=== PATIENT | male | born 1970 | race Caucasian/White ===

== ENCOUNTER 2025-05-27 15:14 | Outpatient (AMB) | payer BC, SELFPAY ==
--- NOTE | 2025-05-27 15:21 | A.PHYSOV_ITS ---
Vital Signs 05/27/25 15:23 Height 5 ft 5 in Weight 175 lb BMI 29.1 Intake Visit Reasons: Follow up after injection 04/03/25 Intake Note: Patient is a 54 year old Male here for follow up after 04/03/25 L5-S1 JOVAN. 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 The patient received a L5-S1 injection on April 03, which was not as effective as previous ones, providing about 50% pain reduction initially, but the benefit has since decreased. The pain is intermittent, located in the right buttock, and radiates down to the beginning of the hamstring but not below. The patient takes gabapentin a couple of times a day, which helps slightly. The patient also sees a chiropractor for dry needling with electrical stimulation. Previous right L5 injections in December provided approximately 90% pain reduction when the pain was bilateral. A prior CT scan showed advanced degenerative disc disease with a posterior osteophyte mildly displacing the right L5 nerve root. The patient has no history of low back surgery, no metal in the body, and is not claustrophobic. The patient's job is active and involves running around and bending. Patient has failed conservative treatment. He is requesting MRI of his lumbar spine for further evaluation as CT scan show the disc and nerve roots as good. He has a pain level today of 7/10. Pain Description - Location: Right buttock. - Radiation: Down the right side to the beginning of the hamstring, without extending further down the leg. - Onset and Timing: Intermittent, with some days being pain-free and others being painful. - Severity: The recent injection on April 03 provided about 50% improvement, but the pain has since returned to a level worse than that. - Exacerbating Factors: Pain is sometimes triggered by activity at work, which involves running around and bending. - Relieving Factors: Gabapentin provides minor relief. Procedure: Right L5 TFESI 01/09/2024 100% reduction of his pain Right L5 TFESI 05/23/2024 90% reduction of his pain L5-S1 JOVAN 90% reduction of his pain 11/22/2024 symptoms returned shortly thereafter [facility] Surgical History (Updated 05/27/25 @ 15:28 by Lachelle Jay MA) H/O: knee surgery (Unknown) H/O hernia repair History of carpal tunnel surgery (Unknown) H/O shoulder surgery Social History (Updated 05/27/25 @ 15:29 by Lachelle Jay MA) Alcohol intake: current Alcohol intake frequency: does not drink Patient Tobacco Use Status: Never used Tobacco Use of substances other than those prescribed or required for medical reasons: No Review of Systems Narrative Review of Systems - Constitutional: Reports feeling a little under the weather. - Musculoskeletal: Reports intermittent pain in the right buttock. - Neurological: Reports pain radiating from the right buttock down to the proximal hamstring. Physical Exam Exam Exam: Physical Exam Lumbar Spine: Examination of his lumbar spine, there is no visible swelling or deformity. He is tender to the right lower lumbar facets. He is otherwise nontender. Full range of motion was lumbar spine. He does have an increase in pain with facet loading. Special Tests: Lhermittes sign was negative Heel Toe walk is normal Left straight leg raise: Negative Right straight leg raise: Positive right Special tests Chemo test is negative Ganslen's test is negative SI Joint compression test negative Eleln test negative Piriformis stretch is negative Lower Extremities: Neuro: Sensation: Intact to lower extremities bilaterally Strength L2 (Psoas): 5/5 on the left and 5/5 on the right. L3 (Quads): 5/5 on the left and 5/5 on the right. L4 (Ant tibialis): 5/5 on the left and 5/5 on the right. L5 (EHL) 5/5 on the left and 5/5 on the right. S1 (Gastroc): 5/5 on the left and 5/5 on the right. DTR L4: (Patellar) Left 2 Right 2 S1: (Achilles) Left 2 Right 2 Babinski Downgoing No pathologic clonus. No involuntary movement. Vital Signs: BMI result Body Mass Index 29.1 Assessment & Plan Assessment & Plan (1) Lumbar radiculopathy: Code(s): M54.16 - Radiculopathy, lumbar region Category: Medical (2) Lumbar spondylosis: Code(s): M47.816 - Spondylosis without myelopathy or radiculopathy, lumbar region Category: Medical Plan Pain Management - Analgesia: The patient is taking gabapentin a couple of times per day, which provides a little help with the pain. - A recent injection on April 03 provided about 50% initial pain relief, but this has since diminished. - Activities of Daily Living: The patient is able to run around at work but sometimes the pain catches them. - Pain can sometimes make it difficult to walk in the morning. Plan Patient was informed and verbally consented to the use of an ambient scribe for clinic note documentation during this visit. 1. Lumbosacral Radiculopathy, Right Side The patient's chief complaint is right-sided buttock pain that radiates to the hamstring, which is consistent with the finding of a right L5 nerve root displacement by a posterior osteophyte on a prior CT scan. A recent injection on April 03 provided only about 50% relief, which has since diminished. The pat ient expressed a preference to better understand the underlying pathology before pursuing another injection. An MRI of the lumbar spine will be ordered to provide more detailed imaging of the discs and nerves. Patient has failed conservative treatment. The patient will follow up after the MRI to review the results and discuss further treatment options. In the interim, the patient will continue taking gabapentin as needed for pain. ntment. - Please schedule a follow-up appointment with our office after you have completed the MRI to review the results. Orders: Orders MR lumbar spine wo con Today M51.16 - Intervertebral disc disorders with radiculopathy, lumbar region Coding Level of Care Code Tele Est Pt Level 3 (37486) Diagnoses Lumbar radiculopathy M54.16 Lumbar spondylosis M47.816
[2025-05-27 15:23] VITALS: BMI 29.1
--- OUTSIDE RECORDS SUMMARY | 2025-05-27 17:42 | XMS_ITS | Data Portability ---
Author Organization [facility] ([place], [place]), Main Office Address [address] [facility] [address] [place] [id number] Care Team Providers Care Marketing Information Coordinator Name Role Phone RYLAN HERNANDEZRI Cad Designer KEO MARKS Orthopedic Surgeon [facility] Urologist RUTH MAURICIO Primary Care Provider PATRICK DEL CID Phys. Med. & Rehab Assessment Encounter Date Assessment Date Assessment LastModified by Organization Details LastModified Time 12/17/2023 12/17/2023 This service was provided using telemedicine. Patient consented to video & audio visit Patient was located in the [facility]. Provider was located in the office. No other persons participated in the telemedicine visit except for the patient unless otherwise indicated here. Total time of visit was 26 minutes. Not available 12/17/2023 13:20:45 Plan of Treatment Reminders Order Date Submit Date Provider Last Modified By Organization Details Last Modified Time Details Appointments PE EST 2025 01:30P Tarik Mauricio PA-C Not available Not available Not available Lab lipid panel, serum 2023 024 LIZZIE [facility] (Centralized Electronic Ordering - All Locations), Patient Can Go To The Location Of Their Choice, [id number] 05/30/2024 14:27:05 CMP, serum or plasma 2023 024 [email or web address] [facility] (Centralized Electronic Ordering - All Locations), Patient Can Go To The Location Of Their Choice, 12/26/2024 09:21:09 lipid panel, serum 2023 024 LIZZIE [facility] (Centralized Electronic Ordering - All Locations), Patient Can Go To The Location Of Their Choice, 07/15/2024 06:07:36 CMP, serum or plasma 2023 024 LIZZIE [facility] (Centralized Electronic Ordering - All Locations), Patient Can Go To The Location Of Their Choice, 07/15/2024 06:07:36 CBC w/ auto diff 2023 024 LIZZIE [facility] (Centralized Electronic Ordering - All Locations), Patient Can Go To The Location Of Their Choice, 07/15/2024 06:07:35 PSA, total, serum or plasma 2023 024 LIZZIE [facility] (Centralized Electronic Ordering - All Locations), Patient Can Go To The Location Of Their Choice, 07/15/2024 06:07:37 CMP, serum or plasma 2023 024 [email or web address] [facility] (Centralized Electronic Ordering - All Locations), Patient Can Go To The Location Of Their Choice, 11/17/2024 09:13:14 lipid panel, serum 2023 024 LIZZIE [facility] (Centralized Electronic Ordering - All Locations), Patient Can Go To The Location Of Their Choice, 11/15/2024 04:00:41 Referral None record ed. Procedures suture remova l (PROC) 2023 024 [place] In-Office Order, Internal Use Only DO Not Attach Compendium DO Not Attach Compendium, Do Not Delete/merge, [id number] 03/11/2024 13:22:29 Surgeries None record ed. Imaging None record ed. Medication Orders Spiriv a Respim at 1.25 mcg/ac tuatio n soluti on for inhala tion 2024 025 [place] [id number], [address] [place], [address], 11/05/2024 16:00:17 Patient TargetsNo targets recorded. Patient Instructions Encounter Date Encounter Id Patient Instructions Last Modified By Organization Details Last Modified Time 12/26/2023 [id number] high blood pressure: care instructions Not available 12/26/2023 16:05:04 learning about high blood pressure Not available 12/26/2023 16:05:03 high cholesterol : care instructions Not available 12/26/2023 16:05:04 Medications (OTC , herbal therapies, supplements) reviewed and reconciled with patient and or caregiver, including potential side effects, drug interactions, instructions, and the consequences of not taking medication. Reviewed potential barriers to medication adherence, such as side effects from medication or cost of medication. gillian Not available 12/26/2023 15:51:55 03/11/2024 [id number] At [facility] follow up visit, all current and discharge medications (OTC, herbal therapies, supplements) reviewed and reconciled with patient and or caregiver, including potential side effects, drug interactions, instructions, and the consequences of not taking medication. Reviewed potential barriers to medication adherence, such as side effects from medication or cost of medication. [email or web address] Not available 03/11/2024 11:27:37 05/30/2024 [id number] high cholesterol : care instructions Not available 05/30/2024 14:26:50 attention defici t hyperactivity disorder (ADHD) in adults: care instructions Not available 05/30/2024 14:26:50 sleep apnea: car e instructions Not available 05/30/2024 14:26:50 When You Want to Lose Weight: Care Instructions Not available 05/30/2024 14:26:50 high blood pressure: care instructions Not available 05/30/2024 14:26:50 learning about high blood pressure Not available 05/30/2024 14:26:50 benign prostatic hyperplasia: care instructions Not available 05/30/2024 14:26:50 11/05/2024 [id number] high blood pressure: care instructions Not available 11/05/2024 16:00:09 learning about high blood pressure Not available 11/05/2024 16:00:09 dash diet: care instructions Not available 11/05/2024 16:05:17 Reason for Referral None Reported. Results Created Date Observation Date Name Description Value Unit Range Abnormal Flag Note LastModifiedBy Organization Detail LastModifiedTime 03/11/2003/11/2024 ninfa nava (PROC ) done by [facility] yvette Not Available In-Office Order Internal Use Only DO Not Attach Compendium DO Not Attach Compendium, Do Not Delete/merge, [id number] 03/11/2024 12:11:40 07/14/1907/14/2024 CBC WITH DIFFE RENTI AL/PL ATELE T WBC 13.2 x10e3 /uL 3.4-10 .8 above high normal Not Available [facility] ([facility]) [address] [place], [address], 07/15/2024 06:07:35 07/14/19 25 07/14/2024 CBC WITH DIFFE RENTI AL/PL ATELE T RBC 4.86 x10e6 /uL 4.14-5 .80 normal Not Available [facility] ([facility]) [address] [place], [address], 07/15/2024 06:07:35 07/14/19 25 07/14/2024 CBC WITH DIFFE RENTI AL/PL ATELE T hemoglobin 14.4 g/dL 13.0-1 7.7 normal Not Available [facility] ([facility]) [address] [place], [address], 07/15/2024 06:07:35 07/14/19 25 07/14/2024 CBC WITH DIFFE RENTI AL/PL ATELE T hematocrit 43.9 % 37.5-5 1.0 normal Not Available [facility] ([facility]) [address] [place], [address], 07/15/2024 06:07:35 07/14/19 25 07/14/2024 CBC WITH DIFFE RENTI AL/PL ATELE T MCV 90 fL 79-97 normal Not Available [facility] ([facility]) [address] [facility], [place], [address], 07/15/2024 06:07:35 07/14/19 25 07/14/2024 CBC WITH DIFFE RENTI AL/PL ATELE T MCH 29.6 pg 26.6-3 3.0 normal Not Available [facility] ([facility]) [address] [place], [address], 07/15/2024 06:07:35 07/14/19 25 07/14/2024 CBC WITH DIFFE RENTI AL/PL ATELE T MCHC 32.8 g/dL 31.5-3 5.7 normal Not Available [facility] ([facility]) [address] [place], [address], 07/15/2024 06:07:35 07/14/19 25 07/14/2024 CBC WITH DIFFE RENTI AL/PL ATELE T RDW 13.1 % 11.6-1 5.4 Not Available [facility] ([facility]) [address] [place], [address], 07/15/2024 06:07:35 07/14/19 25 07/14/2024 CBC WITH DIFFE RENTI AL/PL ATELE T platelets 180 x10e3 /uL 150-45 0 normal Not Available [facility] ([facility]) [address] [place], [address], 07/15/2024 06:07:35 07/14/1907/14/2024 CBC WITH DIFFE RENTI AL/PL ATELE T neutrophils 75 % not estab. normal Not Available [facility] ([facility]) [address] [place], [address], 07/15/2024 06:07:35 07/14/19 25 07/14/2024 CBC WITH DIFFE RENTI AL/PL ATELE T lymphs 15 % not estab. normal Not Available [facility] ([facility]) [address] [facility] [place], [address], 07/15/2024 06:07:35 07/14/19 25 07/14/2024 CBC WITH DIFFE RENTI AL/PL ATELE T monocytes 9 % not estab. normal Not Available [facility] ([facility]) [address] [facility], [place], [address], 07/15/2024 06:07:35 07/14/19 25 07/14/2024 CBC WITH DIFFE RENTI AL/PL ATELE T eos 0 % not estab. normal Not Available [facility] ([facility]) [address] [place], [address], 07/15/2024 06:07:35 07/14/19 25 07/14/2024 CBC WITH DIFFE RENTI AL/PL ATELE T basos 0 % not estab. normal Not Available [facility] ([facility]) [address] [place], [address], 07/15/2024 06:07:35 07/14/19 25 07/14/2024 CBC WITH DIFFE RENTI AL/PL ATELE T immature cells STAFF GENETIC COUNSELOR Not Available [facility] ([facility]) [address] [place], [address], 07/15/2024 06:07:35 07/14/19 25 07/14/2024 CBC WITH DIFFE RENTI AL/PL ATELE T neutrophils (absolute) 9.8 x10e3 /uL 1.4-7. 0 above high normal Not Available [facility] ([facility]) [address] [place], [address], 07/15/2024 06:07:35 07/14/19 25 07/14/2024 CBC WITH DIFFE RENTI AL/PL ATELE T lymphs (absolute) 2.0 x10e3 /uL 0.7-3. 1 normal Not Available [facility] ([facility]) [address] [place], [address], 07/15/2024 06:07:35 07/14/19 25 07/14/2024 CBC WITH DIFFE RENTI AL/PL ATELE T monocytes(ab solute) 1.2 x10e3 /uL 0.1-0. 9 above high normal Not Available [facility] ([facility]) [address] [facility] [place], [address], 07/15/2024 06:07:35 07/14/19 25 07/14/2024 CBC WITH DIFFE RENTI AL/PL ATELE T eos (absolute) 0.0 x10e3 /uL 0.0-0. 4 normal Not Available [facility] ([facility]) [address] [place], [address], 07/15/2024 06:07:35 07/14/19 25 07/14/2024 CBC WITH DIFFE RENTI AL/PL ATELE T baso (absolute) 0.0 x10e3 /uL 0.0-0. 2 normal Not Available [facility] ([facility]) [address] [place], [address], 07/15/2024 06:07:35 07/14/19 25 07/14/2024 CBC WITH DIFFE RENTI AL/PL ATELE T immature granulocytes 1 % not estab. Not Available [facility] ([facility]) [address] [place], [address], 07/15/2024 06:07:35 07/14/19 25 07/14/2024 CBC WITH DIFFE RENTI AL/PL ATELE T immature grans (abs) 0.2 x10e3 /uL 0.0-0. 1 above high normal (An eleva brigida perce ntage of Immat ure Granu locyt es has not been found to be clini dean signi fican t as a sole clini domonique predi ctor of disea se. Does NOT inclu de bands or blast cells . Pregn ger assoc iated physi ologi domonique leuko cytos is may also show incre ased immat ure granu locyt es witho ut clini domonique signi ric ce.) Not Available [facility] ([facility]) [address], [place], [address], 07/15/2024 06:07:35 07/14/19 25 07/14/2024 CBC WITH DIFFE RENTI AL/PL ATELE T NRBC STAFF GENETIC COUNSELOR Not Available [facility] ([facility]) [address], [place], [address], 07/15/2024 06:07:35 07/14/19 25 07/14/2024 CBC WITH DIFFE RENTI AL/PL ATELE T hematology comments: STAFF GENETIC COUNSELOR Not Available [facility] ([facility]) [address], [place], [address], 07/15/2024 06:07:35 07/14/19 25 07/14/2024 COMP. METAB OLIC PANEL (14) glucose 87 mg/dL 70-99 normal Not Available [facility] ([facility]) [address], [place], [address], 07/15/2024 06:07:36 07/14/19 25 07/14/2024 COMP. METAB OLIC PANEL (14) BUN 21 mg/dL 6-24 normal Not Available [facility] ([facility]) [address] [place], [address], 07/15/2024 06:07:36 07/14/19 25 07/14/2024 COMP. METAB OLIC PANEL (14) creatinine 0.94 mg/dL 0.76-1 .27 normal Not Available [facility] ([facility]) [address] [place], [address], 07/15/2024 06:07:36 07/14/19 25 07/14/2024 COMP. METAB OLIC PANEL (14) eGFR 98 mL/mi n/1.7 3 >59 normal Not Available [facility] ([facility]) [address] [place], [address], 07/15/2024 06:07:36 07/14/19 25 07/14/2024 COMP. METAB OLIC PANEL (14) BUN/creatini ne ratio 22 9-20 above high normal Not Available [facility] ([facility]) [address] [place], [address], 07/15/2024 06:07:36 07/14/19 25 07/14/2024 COMP. METAB OLIC PANEL (14) sodium 139 mmol/ L 134-14 4 normal Not Available [facility] ([facility]) [address] [place], [address], 07/15/2024 06:07:36 07/14/19 25 07/14/2024 COMP. METAB OLIC PANEL (14) potassium 4.2 mmol/ L 3.5-5. 2 normal Not Available [facility] ([facility]) [address] [facility] [place], [address], 07/15/2024 06:07:36 07/14/19 25 07/14/2024 COMP. METAB OLIC PANEL (14) chloride 104 mmol/ L 96-106 normal Not Available [facility] ([facility]) [address] [facility] [place], [address], 07/15/2024 06:07:36 07/14/19 25 07/14/2024 COMP. METAB OLIC PANEL (14) carbon dioxide, total 22 mmol/ L 20-29 normal Not Available [facility] ([facility]) [address] [facility] [place], [address], 07/15/2024 06:07:36 07/14/19 25 07/14/2024 COMP. METAB OLIC PANEL (14) calcium 9.5 mg/dL 8.7-10 .2 normal Not Available [facility] ([facility]) [address] [facility] [place], [address], 07/15/2024 06:07:36 07/14/19 25 07/14/2024 COMP. METAB OLIC PANEL (14) protein, total 6.1 g/dL 6.0-8. 5 normal Not Available [facility] ([facility]) [address] [place], [address], 07/15/2024 06:07:36 07/14/19 25 07/14/2024 COMP. METAB OLIC PANEL (14) albumin 4.1 g/dL 3.8-4. 9 normal Not Available [facility] ([facility]) [address] [place], [address], 07/15/2024 06:07:36 07/14/19 25 07/14/2024 COMP. METAB OLIC PANEL (14) globulin, total 2.0 g/dL 1.5-4. 5 Not Available [facility] ([facility]) [address] [place], [address], 07/15/2024 06:07:36 07/14/19 25 07/14/2024 COMP. METAB OLIC PANEL (14) bilirubin, total 0.6 mg/dL 0.0-1. 2 normal Not Available [facility] ([facility]) [address] [facility] [place], [address], 07/15/2024 06:07:36 07/14/19 25 07/14/2024 COMP. METAB OLIC PANEL (14) alkaline phosphatase 74 IU/L 44-121 normal Not Available [facility] ([facility]) [address] [place], [address], 07/15/2024 06:07:36 07/14/19 25 07/14/2024 COMP. METAB OLIC PANEL (14) AST (SGOT) 29 IU/L 0-40 normal Not Available [facility] ([facility]) [address] [facility] [place], [address], 07/15/2024 06:07:36 07/14/19 25 07/14/2024 COMP. METAB OLIC PANEL (14) ALT (SGPT) 38 IU/L 0-44 normal Not Available [facility] ([facility]) [address] [facility] [place], [address], 07/15/2024 06:07:36 07/14/19 25 07/14/2024 LIPID PANEL cholesterol, total 149 mg/dL 100-19 9 normal Not Available [facility] ([facility] [address] [place], [address], 07/15/2024 06:07:36 07/14/19 25 07/14/2024 LIPID PANEL triglyceride s 40 mg/dL 0-149 normal Not Available [facility] ([facility]) [address] [place], [address], 07/15/2024 06:07:36 07/14/19 25 07/14/2024 LIPID PANEL HDL cholesterol 64 mg/dL >39 normal Not Available [facility] ([facility] [address] [place], [address], 07/15/2024 06:07:36 07/14/19 25 07/14/2024 LIPID PANEL VLDL cholesterol domonique 9 mg/dL 5-40 Not Available [facility] ([facility]) [address] [facility] [place], [address], 07/15/2024 06:07:36 07/14/19 25 07/14/2024 LIPID PANEL LDL chol calc ([email or web address] 76 mg/dL 0-99 Not Available [facility] [address] [place], [address], 07/15/2024 06:07:36 07/14/19 25 07/14/2024 LIPID PANEL LDL calc comment: STAFF GENETIC COUNSELOR Not Available [facility] ([facility]) [address] [place], [address], 07/15/2024 06:07:36 07/14/19 25 07/15/2024 PROST ATE-S PECIF IC AG prostate specific Ag 0.4 NG/mL 0.0-4. 0 normal Mirian ECLIA metho dolog y. Accor ding to the Ameri can Urolo gical Assoc iatio n, Serum PSA shoul d decre ase and remai n at undet ectab le level s after radic al prost atect nat[place]. The AUA defin es bioch emica l recur rence as an initi al PSA value 0.2 ng/mL or great er follo wed by a subse quent confi rmato ry PSA value 0.2 ng/mL or great er. Value s obtai edith with diffe rent assay metho ds or kits canno t be used inter dimas eably . Resul ts canno t be inter prete d as absol [place] evide nce of the prese nce or absen ce of cat valle se. Not Available [facility] ([facility]) [address] [facility], [place], [address], 07/15/2024 06:07:37 Result Notes None recorded. Problems Name Problem SNOMED Code Status Onset Date Resolution Date Notes Provider Name and Address Organization Details Recorded Time Knee pain Completed 09/29/2016 Patrick Rich MD [address] [address], [place], [address] , [facility] 7 16:45:46 Moderate asthma 000567158 Active on [employer]ol[employer] Ruth Mauricio PA-C [address] [address], [place], [address] , [facility] 2 16:00:25 Sinusiti s 86151961 Completed 09/29/2016 Patrick Rich MD [address] [address], [address] , [facility] 7 16:46:23 Hearing loss 57437469 Completed 09/29/2016 Patrick Rich MD [address] [address], [place], [address] , [facility] 7 16:46:40 Epistaxi s Active Patrick Rich MD [address] [facility] [address], [place], [address] , [facility] 6 20:48:35 Attentio n deficit hyperact ivity disorder , predomin antly inattent pearl type 83995522 Active Patrick Rich MD [address] [facility] [address], [place], [address] , [facility] 6 11:12:15 Lacerati on of lower limb 211778217 Completed 09/29/2016 Patrick Rich MD [address] [facility] [address], [place], [address] , [facility] 7 16:46:33 Essentia l hyperten silvestre 17559742 Active Juli herrera MA [facility], [facility] ([place], [place]) 0 14:53:37 Lesion of ulnar nerve 723616592 Completed 200809/29/2016 Patrick Rich MD [address] [facility] [address], [place], [address] , [facility] 7 16:46:20 Influenz a vaccine needed 35221563418 06 Completed 200801/13/2014 RECORDED 08/21/19 09 9:04AM BY JULI CONNELL MA, ANNOTATI ON/ADDEN DUM Not Available [facility] 4 14:56:47 Administ ration of bacteria l and viral vaccine Completed 200801/13/2014 RECORDED 08/21/19 09 9:04AM BY JULI CONNELL MA, OFFICE VISIT Not Available [facility] 4 14:56:47 Influenz a vaccine needed 20810494842 06 Completed 200802/05/2014 RECORDED 08/21/19 09 9:04AM BY JULI CONNELL MA, ANNOTATI ON/ADDEN DUM Not Available [facility] 4 13:05:52 Administ ration of bacteria l and viral vaccine Completed 200802/05/2014 RECORDED 08/21/19 09 9:04AM BY JULI CONNELL MA, OFFICE VISIT Not Available [facility] 4 13:05:52 Influenz a vaccine needed 57770508975 06 Completed 200802/06/2014 RECORDED 08/21/19 09 9:04AM BY JULI CONNELL MA, ANNOTATI ON/ADDEN DUM Not Available [facility] 4 03:52:35 Administ ration of bacteria l and viral vaccine Completed 200802/06/2014 RECORDED 08/21/19 09 9:04AM BY JULI CONNELL MA, OFFICE VISIT Not Available [facility] 4 03:52:35 Contact dermatit is 82129307 Completed 200901/13/2014 RECORDED 09/28/19 10 2:37PM BY JULI CONNELL MA, ANNOTATI ON/ADDEN DUM Ruth BILLINGS-C [address] [facility] [address], [place], [address] , [facility] 2 10:21:38 Allergic rhinitis 42654790 Completed 200901/13/2014 RECORDED 09/28/19 10 2:37PM BY JULI CONNELL MA ANNOTATI ON/ADDEN DUM Juli herrera MA null, [facility] ([place], [place]) 6 10:30:39 Contact dermatit is 06743342 Completed 200902/05/2014 RECORDED 09/28/19 10 2:37PM BY JULI CONNELL MA, ANNOTATI ON/ADDEN DUM Ruthbrian BILLINGS-C [address] [facility] [address], [place], [address] , [facility] 2 10:21:38 Allergic rhinitis 74397509 Completed 200902/05/2014 RECORDED 09/28/19 10 2:37PM BY JULI CONNELL MA, ANNOTATI ON/ADDEN DUM SUMAN Olson, [facility] ([place], [place]) 6 10:30:39 Contact dermatit is 67403877 Completed 200902/06/2014 RECORDED 09/28/19 10 2:37PM BY JULI CONNELL MA, ANNOTATI ON/ADDEN DUM Ruth Mauricio PA-C [address] [facility] [address], [place], [address] , [facility] 2 10:21:38 Allergic rhinitis 94310276 Completed 200902/06/2014 RECORDED 09/28/19 10 2:37PM BY JULI CONNELL MA, ANNOTATI ON/ADDEN DUM SUMAN Olson, [facility] ([place], [place]) 6 10:30:39 Shoulder joint pain 402762441 Completed 201101/13/2014 RECORDED 08/11/19 12 3:23PM BY PATRICK RICH MD, ANNOTATI ON/ADDEN DUM Not Available [facility] 4 14:56:45 Acute sinusiti s 53617594 Completed 201101/13/2014 RECORDED 08/11/19 12 3:23PM BY PATRICK RICH MD, ANNOTATI ON/ADDEN DUM Not Available [facility] 4 14:56:45 Headache 60635840 Completed 201101/13/2014 RECORDED 08/11/19 12 3:23PM BY PATRICK RICH MD, ANNOTATI ON/ADDEN DUM Not Available [facility] 4 14:56:46 Dizzines s and giddines s 557441625 Completed 201101/13/2014 RECORDED 08/11/19 12 3:23PM BY PATRICK RICH MD, ANNOTATI ON/ADDEN DUM Not Available [facility] 4 14:56:46 Medial epicondy litis 15318364 Completed 201101/13/2014 RECORDED 08/11/19 12 3:23PM BY PATRICK RICH MD, ANNOTATI ON/ADDEN DUM Not Available [facility] 4 14:56:47 Nausea 640499365 Completed 201101/13/2014 RECORDED 08/11/19 12 3:23PM BY PATRICK RICH MD, ANNOTATI ON/ADDEN DUM Not Available [facility] 4 14:56:47 Otalgia 82974935 Completed 201101/13/2014 IMPRESSI ON: MILD X 2 WEEKS, NORMAL EXAM, H/O ALLERGIE S CONTINUE NASONEX AND CLARINEX , REASSURA NCE GIVEN; RECORDED 08/11/19 12 3:23PM BY PATRICK RICH MD, ANNOTATI ON/ADDEN DUM Not Available [facility] 4 14:56:47 Sprain of acromioc lavicula r ligament 37679718 Completed 201101/13/2014 RECORDED 08/11/19 12 3:23PM BY PATRICK RICH MD, ANNOTATI ON/ADDEN DUM Not Available [facility] 4 14:56:48 Conjunct ival hemorrha ge 21920220 Completed 201101/13/2014 RECORDED 08/11/19 12 3:23PM BY PATRICK RICH MD, ANNOTATI ON/ADDEN DUM Not Available [facility] 4 14:56:48 Intestin al infectio us disease 620107789 Completed 201101/13/2014 RECORDED 08/11/19 12 3:23PM BY PATRICK RICH MD, ANNOTATI ON/ADDEN DUM Not Available [facility] 4 14:56:48 Shoulder joint pain 818692416 Completed 201102/05/2014 RECORDED 08/11/19 12 3:23PM BY PATRICK RCIH MD, ANNOTATI ON/ADDEN DUM Not Available [facility] 4 13:05:51 Acute sinusiti s 25992600 Completed 201102/05/2014 RECORDED 08/11/19 12 3:23PM BY PATRICK RICH MD, ANNOTATI ON/ADDEN DUM Not Available [facility] 4 13:05:51 Headache 95270596 Completed 201102/05/2014 RECORDED 08/11/19 12 3:23PM BY PATRICK RICH MD, ANNOTATI ON/ADDEN DUM Not Available [facility] 4 13:05:52 Dizzines s and giddines s 960335308 Completed 201102/05/2014 RECORDED 08/11/19 12 3:23PM BY PATRICK RICH MD, ANNOTATI ON/ADDEN DUM Not Available [facility] 4 13:05:52 Medial epicondy litis 42458604 Completed 201102/05/2014 RECORDED 08/11/19 12 3:23PM BY PATRICK RICH MD, ANNOTATI ON/ADDEN DUM Not Available [facility] 4 13:05:52 Nausea 981937629 Completed 201102/05/2014 RECORDED 08/11/19 12 3:23PM BY PATRICK RICH MD, ANNOTATI ON/ADDEN DUM Not Available [facility] 4 13:05:52 Otalgia 29031689 Completed 201102/05/2014 IMPRESSI ON: MILD X 2 WEEKS, NORMAL EXAM, H/O ALLERGIE S CONTINUE NASONEX AND CLARINEX , REASSURA NCE GIVEN; RECORDED 08/11/19 12 3:23PM BY PATRICK RICH MD, ANNOTATI ON/ADDEN DUM Not Available [facility] 4 13:05:52 Sprain of acromioc lavicula r ligament 96001394 Completed 201102/05/2014 RECORDED 08/11/19 12 3:23PM BY PATRICK RICH MD, ANNOTATI ON/ADDEN DUM Not Available [facility] 4 13:05:53 Conjunct ival hemorrha ge 67274499 Completed 201102/05/2014 RECORDED 08/11/19 12 3:23PM BY PATRICK RICH MD, ANNOTATI ON/ADDEN DUM Not Available [facility] 4 13:05:53 Intestin al infectio us disease 871726024 Completed 201102/05/2014 RECORDED 08/11/19 12 3:23PM BY PATRICK RICH MD, ANNOTATI ON/ADDEN DUM Not Available [facility] 4 13:05:53 Shoulder joint pain [id number] Completed 201102/06/2014 RECORDED 08/11/19 12 3:23PM BY PATRICK RICH MD, ANNOTATI ON/ADDEN DUM Not Available [facility] 4 03:52:34 Acute sinusiti s [id number] Completed 201102/06/2014 RECORDED 08/11/19 12 3:23PM BY PATRICK RICH MD, ANNOTATI ON/ADDEN DUM Not Available [facility] 4 03:52:34 Headache [id number] Completed 201102/06/2014 RECORDED 08/11/19 12 3:23PM BY PATRICK RICH MD, ANNOTATI ON/ADDEN DUM Not Available [facility] 4 03:52:35 Dizzines s and giddines s [id number] Completed 201102/06/2014 RECORDED 08/11/19 12 3:23PM BY PATRICK RICH MD, ANNOTATI ON/ADDEN DUM Not Available [facility] 4 03:52:35 Medial epicondy litis [id number] Completed 201102/06/2014 RECORDED 08/11/19 12 3:23PM BY PATRICK RICH MD, ANNOTATI ON/ADDEN DUM Not Available [facility] 4 03:52:35 Nausea [id number] Completed 201102/06/2014 RECORDED 08/11/19 12 3:23PM BY PATRICK RICH MD, ANNOTATI ON/ADDEN DUM Not Available [facility] 4 03:52:35 Otalgia [id number] Completed 201102/06/2014 IMPRESSI ON: MILD X 2 WEEKS, NORMAL EXAM, H/O ALLERGIE S CONTINUE NASONEX AND CLARINEX , REASSURA NCE GIVEN; RECORDED 08/11/19 12 3:23PM BY PATRICK RICH MD, ANNOTATI ON/ADDEN DUM Not Available [facility] 4 03:52:35 Sprain of acromioc lavicula r ligament [id number] Completed 201102/06/2014 RECORDED 08/11/19 12 3:23PM BY PATRICK RIHC MD, ANNOTATI ON/ADDEN DUM Not Available [facility] 4 03:52:35 Conjunct ival hemorrha ge [id number] Completed 201102/06/2014 RECORDED 08/11/19 12 3:23PM BY PATRICK RICH MD, ANNOTATI ON/ADDEN DUM Not Available [facility] 4 03:52:35 Intestin al infectio us disease [id number] Completed 201102/06/2014 RECORDED 08/11/19 12 3:23PM BY PATRICK RICH MD, ANNOTATI ON/ADDEN DUM Not Available [facility] 4 03:52:35 Lateral epicondy litis [id number] Completed 201101/13/2014 RECORDED 05/25/20 12 10:07AM BY JADE MAYBERRY MA, ANNOTATI ON/ADDEN DUM Not Available [facility] 4 14:56:46 Adult health examinat ion Completed 201101/13/2014 RECORDED 05/25/20 12 10:07AM BY JADE MAYBERRY MA, ANNOTATI ON/ADDEN DUM SUMAN Hernández [place] - [facility] 8 14:22:20 Lateral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 Much Tobacco Do You Chew? None Information not available 09/29/2015 What Type Of Diet Are You Following? REGULAR Information not available 09/24/2014 Which Illicit Or Recreational Drugs Have You Used? None Information not available 09/29/2015 Live Alone Or With Others? With Others (Alondra) And Twins (boy And Girl) Information not available 04/28/2022 Do You Take Precautions To Prevent Distracted Driving? Yes Information not available 09/29/2015 How Often Do You Need To Have Someone Help You When You Read Instructions, Pamphlets, Or Other Written Material From Your Doctor Or Pharmacy? Never Information not available 09/29/2015 Have You Served In The ? No [email or web address] Information not available 09/29/2016 Have You Or Anyone In Your Household Had Any Of The Following Symptoms In The Last 14 Days: Sore Throat, Cough, Chills, Body Aches For Unknown Reasons, Shortness Of Breath For Unknown Reasons, Loss Of Smell, Loss Of Taste, Fever At Or Greater Than 100 Degrees Fahrenheit? No [email or web address] Information not available 05/17/2020 Are You Or Anyone In Your Household A Health Care Provider Or Emergency Responder? Yes [email or web address] Information not available 05/17/2020 To The Best Of Your Knowledge Have You Been In Close Proximity To Any Individual Who Tested Positive For COVID-19? No Information not available 05/17/2020 *AWV ONLY* Are You Presently Prescribed Opioid Medication By PCP Or Specialist? If YES -Provider Assess The Benefit For Other, Non-opioid Pain Therapies Instead, Even If The Patient Does Not Have OUD But Is Possibly At Risk. No Information not available 12/24/2020 Have You Recently Traveled To A COVID-19 High Risk Area Or Gathering In The Last 10 Days? No Information not available 12/24/2020 What Was The Date Of Your Most Recent Tobacco Screening? 05/30/2024 Information not available 05/30/2024 How Many Children Do You Have? 2 Twins (boy And Girl) Information not available 09/29/2015 Do You Use Protection During Sex? No Information not available 09/29/2015 Do You Use Your Seat Belt Or Car Seat Routinely? Yes Information not available 12/27/2021 Seat Belts Used Routinely Yes Information not available 04/28/2022 Are You Sexually Active? Yes Information not available 09/29/2015 Smoke Alarm In Home Yes Information not available 04/28/2022 Do You Have Smoke And Carbon Monoxide Detectors In Your Home? Yes Information not available 12/27/2021 At What Age Did You Start Smoking Tobacco? 0 Information not available 09/29/2015 Are You Passively Exposed To Smoke? No Information not available 09/29/2015 How Much Tobacco Do You Smoke? No Information not available 09/29/2015 Do You Use Sunscreen Routinely? Yes Information not available 12/24/2020 How Many Years Have You Smoked Tobacco? 0 Information not available 09/29/2015 Sex: Unknown Functional Status Question Answer Note LastModified by Organizat ion Details LastModified Time Do you use any illicit or recreational drugs? No Information not available 04/28/2022 Do you or have you ever used any other forms of tobacco or nicotine? No Information not available 04/28/2022 What is your level of alcohol consumption? None Information not available 12/24/2020 Do you or have you ever used smokeless tobacco? Never used smokeless tobacco Information not available 12/22/2019 Are you currently employed? Yes Information not available 09/24/2014 Are you able to walk independently without assistance or assistive devices? YESWOREST Information not available 04/28/2022 Are you able to care for yourself independently? 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 Never used electronic cigarettes Information not available 04/28/2022 What is your exercise level? Occasional Information not available 05/30/2024 Mental Status None recorded. Family History Relationship Description Onset Age of this Age Resolved Age Notes LastModified by Organization Details LastModified Time Mother Hypertensive disorder [email or web address] Not available 11:04:12 Mother Migraine [email or web address] Not available 12/24/2020 09:58:47 Mother Chronic obstructive pulmonary disease [email or web address] Not available 2021 09:24:04 Father Hypertensive disorder 72 [email or web address] Not available 2021 09:23:45 Father Cardiac arrest 72 Not available 2021 15:07:03 Son Autistic disorder Not available 2021 15:07:03 Maternal Aunt Asthma [email or web address] Not avail able 12/24/2020 09:58:47 Brother Harmful pattern of use of alcohol abolcun Not available 2020 09:58:47 Medical History Condition Response Gout N Other N Kidney Stones N Blood Diseases N Hyperthyroidism N Breast Cancer N Hypothyroidism N Lung Disease N Depression N COPD N Defects or Inherited Disease N Anesthesia Complications N Headaches/Migraines Y Anxiety Disorder N Varicose Veins N Obesity N Vision or Eye Problems N Arthritis N Head Injury/Concussion N Infertility N Polyps N Congenital Anomalies N Acid Reflux (GERD) N Cancer N Stroke N ADHD Y Endometriosis N High Cholesterol N Liver Disease N Fibromyalgia N Kidney Disease N Heart Problems N Ear or Hearing Problems N Hospitalizations N Thyroid Problems N GI Problems N Acne N Eating Disorder N Skin Problems N Anemia N Constipation N Bladder Problems N Mental Illness N Diabetes N Ovarian Cancer N Blood Transfusions N Seizures/Epilepsy N Tuberculosis N AIDS/HIV N Congestive Heart Failure (CHF) N Eczema Y Abuse/Domestic Violence N Diverticulitis N Asthma Y Allergies N Reflux/GERD N Hepatitis N Pulmonary Embolism N Hypertension N Chicken Pox Y Autism Spectrum Disorder (ASD) N Osteoporosis N Immunizations Vaccine Type Date Status Note Provider Nam e and Address Organization Details Recorded Time Influenza, split virus, trivalent, preservative [address] [facility] ([place] [place] 08/14/2023 10:29:24 Influenza, split virus, trivalent, preservative [address] [facility] [place] 04/28/2022 15:21:21 Tdap [address] [facility] [place] 11/21/2018 08:47:59 Influenza, split virus, trivalent, preservative 9 [facility] [place] [facility]2019 14:53:21 Influenza, split virus, quadrivalent, preservative 0 [facility] [place] [facility] 08/14/2023 10:29:24 zoster recombinant 2 [facility] [place] [facility] 10/31/2021 14:51:48 COVID-19, mRNA, LNP-S, PF, 30 mcg/0.3 mL dose 1 [facility] [place] [facility] 10/31/[facility]21 14:51:48 Tdap 8 [facility] [place] [facility] 10/31/2021 14:51:48 Influenza, split virus, quadrivalent, PF [address] [facility] [place] 10/31/2021 14:51:48 COVID-19, mRNA, LNP-S, PF, 100 mcg/0.5mL dose or 50 mcg/0.25mL dose 1 [facility] [place] [facility] 12/27/2021 08:53:38 Influenza, MDCK, quadrivalent, PF [address] [facility] [place] 12/27/2021 08:53:38 zoster recombinant 2 [facility] 12/27/2021 08:53:38 Influenza, split virus, quadrivalent, PF 7 [facility] [place] [facility] 12/27/2021 08:53:38 COVID-19, mRNA, LNP-S, PF, 100 mcg/0.5mL dose or 50 mcg/0.25mL dose 1 completed SUMAN Harris, [facility] [place] 12/27/2021 08:53:38 pneumococcal polysaccharide PPV23 1 completed SUMAN Harris, [facility] [place] 12/27/2021 08:53:38 Influenza, split virus, trivalent, preservative 5 completed SUMAN Harris, [facility] [place] 12/27/2021 08:53:38 Influenza, split virus, quadrivalent, PF 0 completed SUMAN Harris, [facility] [place] 12/27/2021 08:53:38 Influenza, split virus, quadrivalent, PF 2 completed SUMAN Mattson, [facility] [place] 12/25/2022 14:16:11 COVID-19, mRNA, LNP-S, PF, 30 mcg/0.3 mL dose 1 completed Juli Smalls MA null, [facility] [place] 08/14/2023 10:29:24 COVID-19, mRNA, LNP-S, PF, 30 mcg/0.3 mL dose 1 completed SUMAN Valdez, [facility] [place] 08/14/2023 10:29:24 COVID-19, mRNA, LNP-S, PF, sumanth-sucrose, 30 mcg/0.3 mL 3 completed SUMAN Hilton, [facility] [place] 08/28/2023 11:24:27 Tdap 4 completed Mar Lux LPN null, [facility] [place] 03/11/2024 11:33:52 COVID-19, mRNA, LNP-S, PF, 50 mcg/0.5 mL 4 completed Yana Nicholson null, [facility] [place] 03/31/2024 12:48:33 Influenza, split virus, trivalent, PF 4 completed SUMAN Hilton, [facility] [place] 05/30/2024 13:52:00 Influenza, split virus, trivalent, preservative [address] [facility] 01/13/2014 13:41:32 Influenza, split virus, trivalent, preservative [address] [facility] 01/13/2014 13:41:32 Influenza, split virus, trivalent, preservative [address] [facility] 01/13/2014 13:41:32 Tdap [address] [facility] 01/13/2014 13:41:32 Influenza, split virus, quadrivalent, PF 3 completed Ruth Mauricio PA-C [address], [address], [facility] 04/03/2023 11:56:08 Past Encounters Encounter ID Performer Location Encounter Start Date Encounter Closed Date Diagnosis/Indication Diagnosis SNOMED-CT Code Diagnosis ICD10 Code Diagnosis IMO Codes Diagnosis Note [id number] [facility] [facility] [address] [facility] [address] [facility] [place] [address] 01/29/2007 00:00:00 [id number] auto[employer] erce [address] [facility] [address] [facility] [place] [address] 04/12/2007 00:00:00 [id number] auto[employer] erce [address] [facility] [address] [facility] [place] [address] 07/31/2006 00:00:00 [id number] [employer] erce [address] [facility] [address] [facility] [place] [address] 08/20/2007 00:00:00 [id number] auto[employer] erce [address] [facility] [address] [place] [address] 08/21/2008 00:00:00 [id number] auto[employer] erce [address] [facility] [address] [place] [address] 12/02/2008 00:00:00 [id number] auto[employer] erce [address] [facility] [address] [place] [address] 09/27/2009 00:00:[id number] [address] [place] [address] 05/24/2010 00:00:00 [id number] [address] [place] [address] 06/08/2010 00:00:00 [id number] [address] [address] [address] [place] [address] 07/12/2010 00:00:00 [id number] autoEComm erce [address] [facility] [address] [address] [place] [address] 08/26/2010 00:00:00 [id number] autoEComm erce [address] [facility] [address] [place] [address] 11/18/2010 00:00:00 [id number] autoEComm erce [address] [facility] [address] [address] [place] [address] 12/28/2010 00:00:00 [id number] autoEComm erce [address] [facility] [address] [place] [address] 02/28/2011 00:00:00 [id number] autoEComm erce [address] [facility] [address] [place] [address] 08/11/2011 00:00:00 [id number] autoEComm erce [address] [facility] [address] [place] [address] 12/07/2011 00:00:00 [id number] auto[employer]Comm erce [address] [facility] [address] [place] [address] 12/12/2011 00:00:00 [id number] auto[employer]Comm erce [address] [facility] [address] [address] [place] [address] 05/25/2012 00:00:00 [id number] auto[employer]Comm erce [address] [facility] [address] [place] [address] 08/28/2012 00:00:00 [id number] auto[employer]Comm erce [address] [facility] [address] [place], [place] [address] 02/04/2013 00:00:00 [id number] auto[employer]Comm erce [address] [facility] [address] [place], [place] [address] 02/14/2013 00:00:00 [id number] auto[employer]Comm erce [address] [facility] [address] [place], [place] [address] 07/28/2013 00:00:00 [id number] auto[employer]Comm erce [address] [facility] [address] [place], [place] [address] 09/19/2013 00:00:00 [id number] Blayne Alva MD Main Office [address] [address] [place] [address] 07/23/2014 14:02:37 07/23/2014 15:23:30 Knee pain 54290832 possible damage to medial meniscus. [id number] Patrick Rich MD Main Office [address] [address] [place] [address] 09/24/2014 14:51:16 09/24/2014 16:09:00 Adult health examination 833343152 Moderate asthma 950183845 Hyperlipidemia 24704212 Body mass index 25-29 - overweight 532689541 [id number] Dominic Mauricio PA-C Main Office [address] [address] [place] [address] 09/23/2015 10:48:47 09/23/2015 11:55:51 Sinusitis 06157442 J32.9 [id number] Patrick Rich MD Main Office [address] [address] [place] [address] 09/29/2015 12:49:07 09/29/2015 13:58:37 Adult health examination 812163870 Z00.00 Body mass index 25-29 - overweight 444845300 Z68.29 E66.3 Moderate asthma 42454891 9 J45.40 Hearing loss 91155287 H9 1.90 Epistaxis 43313646 R04.0 Allergic rhinitis 537102 04 J30.9 [id number] Patrick Rich MD Main Office [address] [address] [place] [address] 01/25/2016 10:30:20 01/25/2016 11:00:06 Attention deficit hyperactivity disorder, predominantly inattentive type 20808252 F90.0 Laceration of lower limb 994330693 S81.811A [id number] Patrick Rich MD Main Office [address] [place] [address] 09/29/2016 15:14:39 09/29/2016 16:47:12 Adult health examination 348231539 Z00.00 Bursitis of shoulder 239 626270 M75.51 Hyperlipidemia 58754809 E78.5 Fatigue 64604546 R53.83 Asthma 852177215 J45.40 Followed by allergy Attention deficit hyperactivity disorder, predominantly inattentive type 48209502 F90.0 [id number] Dominic Mauricio PA-C Main Office [address] [place] [address] 11/06/2016 09:51:44 11/06/2016 11:02:19 Jacek 23378901 R06.6 will check ekg to r/o inferior wall [place] 25 minute office visit with greater than 50% of the visit face-to-fa ce with the patient and/or family providing counseling and/or coordinati on of care. [id number] Dominic Mauricio PA-C Main Office [address] [place] [address] 11/15/2017 08:43:23 11/15/2017 10:28:12 Adult health examination 272759196 Z00.00 Moderate asthma 16362536 9 J45.40 continue follow up with [facility] - has used pred on a few occ recently Attention deficit hyperactivity disorder, predominantly inattentive type 18024326 F90.0 Med refill. Continue current regimen. Hyperlipidemia 15536302 E78.00 Diet and exercise. Body mass index 25-29 - overweight 071069127 Z68.28 diet and exercise. Anxiety 46145657 F41.9 Take meds as prescribed in addition to counseling as needed. start c 1/2 tab x first wk then increase pt to call to make apptmt c [facility] - has rec. provider there Essential hypertension 88247712 I10 pt to cont. follow bp at work - call us if cont to trend elevated [id number] Dominic Mauricio PA-C Main Office [address] [facility] [address] [address] [place] [address] 02/13/2018 15:51:25 02/13/2018 16:54:52 Attention deficit hyperactivity disorder, predominantly inattentive type 99470874 F90.0 stable, no need for refills at this time Leukocytosis 881007571 D 72.829 was on pred d/t recent uri as well as s/p taqueria injxn -- pending recheck in 1-2 wks Pure hypercholesterolemia 329935618 E78.00 ascvd risk of 3% - no need for statin rx - no FH early CAD - rec cont less red meat - ? likely genetic, will cont to monitor annually Essential hypertension 89622517 I10 better, bp readings at work have been stable, Cr stable Anxiety 73421732 F41.9 better, cont celexa as dir, pt decided not to go to n - advised him to consider if feeling worse [id number] Serafin Armstrong MD Main Office [address] [facility] [address] [place] [address] 11/20/2018 09:17:15 11/20/2018 10:31:05 Adult health examination 984675558 Z00.00 pending check c [facility] [place] last tetanus booster pending root canal tomorrow Attention deficit hyperactivity disorder, predominantly inattentive type 50493874 F90.0 stable, no need for refills at this time - cont med as per pcp Leukocytosis 041777997 D 72.829 was on pred d/t uri as well as s/p taqueria injxn -- he never went for recheck as dir - will monitor again Pure hypercholesterolemia 434712169 E78.00 ascvd risk of 3% - no need for statin rx - no FH early CAD - rec cont less red meat - ? likely genetic, will cont to monitor annually Essential hypertension 11922087 I10 bp ~ stable, readings at work have been stable - will check bmp Anxiety 53211051 F41.9 better, cont celexa as dir, pt decided not to go to [facility] - advised him to consider if feeling worse Asthma 895991367 J45.30 cont f/u c specialist - seeing them tomorrow Allergic rhinitis 922633 04 J30.9 Body mass index 25-29 - overweight 736641574 Z68.29 was on pred a lot over winter - rec diet and exercise. Vitamin D deficiency 347 11513 E55.9 Strain of muscle of left groin region 3053319098 6419039 S76.012A no hernia appreciate d on exam today --likely groin strain, rec HEP [id number] Blayne Alva MD Main Office [address] [facility] [address] [place] [address] 02/04/2019 11:21:55 02/04/2019 12:19:33 Left inguinal hernia 439731306 K40.90 [id number] Serafin Armstrong MD Main Office [address] [facility] [address] [place] [address] 09/01/2019 09:45:51 09/01/2019 11:11:10 Substance abuse 59282874 F19.10 adderall -- was admitted to [facility], then [facility] (had PHP there) - rev. their dc sum - has f/u c [facility] tomorrow for IOP also f/u c AA/NA has std paperwork to fill out - wants to go back to work next sunday - has been oow since 1.29 Attention deficit hyperactivity disorder, predominantly inattentive type 14953574 F90.0 stable off meds, see above [id number] Patrick Rich MD Main Office [address] [facility] [address] [place] [address] 12/22/2019 14:36:50 12/22/2019 16:29:24 Adult health examination 575596444 Z00.00 Essential hypertension 44702857 I10 Stable off of medication Moderate asthma 81234399 9 J45.40 Stable on present meds. followed by allergy. 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 Advise to take with meal to prevent GI affects. He is aware risk of GI ulcer (no hx), Advised to monitor BP as BP can go up with NSAID use. He is aware small risk of airways sensitivit y with NSAID however he has tolerated ibuprofen in past. He is aware to take 7 days with meal straight and after that PRN if he is better.-Ad vised cold and warm compress alternatin g, avoid activities that aggravate pain and to Keep elevated.- If no improvemen t with consider physiatry referral. [id number] Ruth Mauricio PA-C Main Office [address] [facility] [address] [place] [address] 12/24/2020 09:52:19 12/24/2020 10:58:08 Adult health examination 602144858 Z00.00 vaccines are up to date. Essential hypertension 38741687 I10 stable on acei. Hyperlipidemia 96892760 E78.5 retest lipids. Continue low fat diet. Body mass index 25-29 - overweight 233493660 Z68.29 recommend to continue exercise activity and low calorie diet. Moderate asthma 07904721 9 J45.40 f/u with [facility] [place] [facility]. Primary er ectile dysfunction 746736587 N52.9 continue sildenafil . Benign pro static hyperplasia 677174661 N40.0 retest PSA and refer to the urologist due to family h/o prostate ca Overweight 897513308 E66 .3 [id number] Ebony Travis MD Telehealt h [address] [facility] [address] [place] [address] 10/31/2021 09:14:43 10/31/2021 16:48:00 Bilateral lung opacities on plain chest X-ray 539243214 R91.8 ? inflammati on, infection or malignancy . Pt. is starting levofloxac in for pneumonia today prescribed by kaiawhina kura ka[place] maori. I advised him to add high count probiotics and we will set up pulmonary consult for him. He is also scheduled for complete pulmonary functions at the hospital. [id number] Ebony Travis MD Main Office [address] [facility] [address] [place] [address] 12/27/2021 08:45:47 12/27/2021 10:08:59 Adult health examination 277012326 Z00.00 vaccines are up to date. screening colonoscop y. Attention deficit hyperactivity disorder, predominantly inattentive type 52489917 F90.0 stable off medication Hyperlipidemia 48987968 E78.5 retest lipids. Continue low fat diet. Essential hypertension 85507909 I10 Screening for malignant neoplasm of colon 783165736 Z12.11 Nocturia 859470029 R35.1 recheck PSA and see urologist. Last visit in 2019. Resting tremor 67249096 G25.2 continue observing. ? familial. If worsening refer to neuro Moderate asthma 09001671 9 J45.40 f/u with kaiawhina kura ka[place] maori. Primary er ectile dysfunction 079860370 N52.9 f/u with urologist. [id number] Ebony Travis MD Main Office [address] [facility] [address] [place] [address] 04/28/2022 15:05:44 04/28/2022 15:48:46 Essential hypertension 11103111 I10 stable on meds. Continue low sodium diet. Primary er ectile dysfunction 904863709 N52.9 continue tadalafil 20 mg. Check testostero ne level. Snoring 42458751 R06.83 schedule sleep medicine lana. Decreased hearing 128170 001 H91.93 refer to audiologis t Major depr ession single episode, in partial remission 16115778 F32.4 PHQ score is 0. Continue current meds. Continue therpay biweekly. [id number] Ebony Travis MD Telehealt [address] [facility] [address] [place] [address] 12/25/2022 13:21:19 12/25/2022 14:55:03 Major depression single episode, in partial remission 11469676 F32.4 PHQ score is 0. Continue current meds. Continue therapy biweekly. Essential hypertension 12513386 I10 stable on meds. Continue low sodium diet. [id number] Ebony Travis MD Main Office [address] [place] [address] 04/03/2023 10:21:46 04/03/2023 11:30:51 Adult health examination 834425236 Z00.00 Vaccines UTD. Needs infl uenza immunization 710097759 Z23 Attention deficit hyperactivity disorder, predominantly inattentive type 40508920 F90.0 stable off medication Decreased hearing 907668 001 H91.93 Saw audiologis t early this year, no tx and interventi on needed. Stable. Essential hypertension 30603121 I10 stable on meds. Continue low sodium diet and exercise. repeat labs. F/u 4 m. Hyperlipidemia 85140752 E78.5 Recheck fasting lipids. Continue low fat diet and atorvastat in. Major depr ession single episode, in partial remission 38008746 F32.4 PHQ score is 0. Continue current meds. Continue therapist biweekly. Moderate asthma 40503616 9 J45.40 stable on meds, f/u with kaiawhina kura ka[place] maori Primary er ectile dysfunction 527688657 N52.9 stable, continue tadalafil 20 mg. Last testostero ne WNL. Pt. is not seeing urologist. Obstructiv e sleep apnea syndrome 44366333 G47.33 stable on cpap machine, f/u with sleep specialist s Periodic l imb movement disorder 701014535 G47.61 no meds prescribed . Benign pro static hyperplasia 340183522 N40.0 Last PSA was 0.6 in December. Will recheck due to family h/o prostate ca, last saw urology 03/2022 at [facility] urology, rec to f/u in 1 year. Allergic rhinitis 445448 04 J30.9 continue allergy meds. Essential tremor 8974841 09 G25.0 saw neuro on 01/25/22, no tx rec at this time. Continue to monitor, if worse f/u with neuro [id number] Ebony Travis MD Main Office [address] [place] [address] 08/14/2023 10:24:44 08/14/2023 10:50:50 Acute laryngitis 4299524 J04.0 causing throat irritation and cough. Pt. is advised to continue doxycyclin e , prednisone and other inhalers , but begin benzonatat e 200 mg TID to suppress cough. [id number] Ruth Mauricio PA-C Main Office [address] [address] [place] [address] 08/28/2023 11:23:06 08/28/2023 11:57:37 Essential hypertension 38992210 I10 BP slightly elevated in office and while checking blood pressures at work. Pt educated to obtain blood pressure cuff and monitor his blood pressure more frequently at home over the next month. Pt will send message in the portal with blood pressure readings to determine the need for adjustment to current medication s. Continue low sodium diet and exercise. repeat labs. F/u 4 m. [id number] Ebony Travis MD Main Office [address] [address] [place] [address] 11/21/2023 12:45:01 11/21/2023 13:36:09 Thoracic radiculopathy 28914698 M54.14 Acute T12 radiculopa thy. Begi prednisone taper at 50 mg over 10 days, gabapentin 100 mg TID , increase by 100 mg first atg HS every 3 days. Tramadol PRN for acute pain. Referral to [facility]. F/u on tele health in 2 weeks. [id number] [facility]afin [facility] [address] [address] [place] [address] 12/17/2023 12:29:03 12/17/2023 13:26:53 Lumbar radiculopathy 952226343 M54.16 Followed now by Family Physiatry ( Dr. Del Cid). Cortisone to R. hop was helpful. Pt.will continue gabapentin 100 mg TIDS plus PT will be added. OTC pain meds PRN. Lumbar spondylosis 38008 0009 M47.896 See above. F/u with pain management . [id number] Serafin Armstrong MD Main Office [address] [address] [place] [address] 12/26/2023 15:03:09 12/26/2023 16:09:42 Essential hypertension 38768015 I10 BP normal at 115/57 today and have been stable at home. Continue lisinopril 5 mg daily, low salt diet, and daily exercise. F/u 4 m. Hyperlipidemia 05061435 E78.5 Recheck fasting lipids. Continue low fat diet and atorvastat in. [id number] Serafin Armstrong MD Main Office [address] [address] [place] [address] 03/11/2024 11:20:28 03/11/2024 12:06:52 Laceration of lower leg 406040247 S81.811S Well healing wound. 9 interrupte d sutures removed, bacitracin ointment applied and the site was covered with 2 band aids. Tetanus UTD. Pt instructio ns discussed: continue cleaning site QD with mild soap and water and cover with bandage. Advised patient to return to clinic if he develops signs of infection such as fever, pain, increased redness, or purulent discharge. [id number] Serafin Armstrong MD Main Office [address] [address] [place] [address] 05/30/2024 13:47:40 05/30/2024 14:38:14 Adult health examination 780669169 Z00.00 Vaccines UTD. Attention deficit hyperactivity disorder, predominantly inattentive type 30023228 F90.0 stable off medication Benign pro static hyperplasia 577212596 N40.0 recheck due to family h/o prostate ca, last saw urology 03/2022 at [facility] urology, rec to f/u in 1 year. Essential hypertension 54243047 I10 BP is elevated today, but pt is on prednisone and is using rescue inhaler frequently for asthma flare. Advised to start testing at home after this flare and if readings are up in 140s range, pt will let me now to adjust lisinopril up to 10 mg. Continue low sodium diet and attempts to lose weight. F/u 3-4 m. Hyperlipidemia 39663468 E78.5 Recheck fasting lipids. Continue low fat diet and atorvastat in. Lumbar spondylosis 43792 0009 M47.896 F/u with pain management . Major depr ession single episode, in partial remission 73668444 F32.4 PHQ score is 0. Continue current meds. Continue therapy. Moderate asthma 04767054 9 J45.40 overall improved on Xolair infusions, but still is having occasional flares. Vaccinatio ns are all up to date. Obstructiv e sleep apnea syndrome 10309453 G47.33 Continues CPAP use. Periodic l imb movement disorder 742701073 G47.61 no meds prescribed . Primary er ectile dysfunction 537750085 N52.9 stable, continue tadalafil 20 mg. Last testostero ne WNL. Pt. is not seeing urologist. Resting tremor 78479009 G25.2 continue observing. ? familial. If worsening refer to neuro Body mass index 25-29 - overweight 823651247 E66.3 Z68.29 recommend to continue exercise activity and low calorie diet. [id number] Blayne Alva MD Main Office [address] [place] [address] 11/05/2024 14:46:49 11/05/2024 16:03:51 Essential hypertension 28919553 I10 Stable hypertensi on on lisinopril 5 mg and low sodium diet. PT. is advised to test at home at least once per week. F/u 6 m. Moderate asthma 61110253 9 J45.40 Follow up with an kaiawhina kura ka[place]apa maori. Uses [employer] [facility]. Health Concerns Section Related Observation LastModified by Organization Detai ls LastModified Time None Recorded Concern Status LastModified by Organization Details LastModified Time None Recorded Advance Directives Directive Y: HCP Payers Insurance Date Sequence Insurance Name Policy Number Policy Davis Covered Member ID Davis Member ID Guarantor Name 11/17/2024 1 MARIAN (PPO) [id number] [facility] [id number] [facility] 05/12/2020 1 MARIAN (PPO) [id number] [facility] [id number] [facility] Notes Date Note Type Note Provider Name and Address Organization Details Recorded Time 12/17/2023 text/html ROS as noted in the HPI 53 year old male for f/u on acute radiculopathy. Seen by pain management and had R. hip steroid injection for trochanteric bursitis. MRI showed lumbar radiculopathy L4-5 and spondylosis. Pt. is on gabapentin at 100 mg tid. Stopped tramadol. Pain is 50% improved after steroid taper and with gabapentin. Pt. awaiting PT eval in 2 weeks. Able ot function much better day to day and sleeps better. Takes NSAIDs and Tylenol for pain. Has lana with Dr. Del Cid. Ruth Mauricio PA-C [address] [facility] [address], [place], [address], [facility] 12/17/2023 13:22:30 12/26/2023 text/html Hypertension F/UReported by PatientHPIFor associated symptoms, patient reportsno dizziness,no lightheadedness,no chest pain,no shortness of breath,no palpitations,no edema, andno calf pain with exertion. For lifestyle, patient reportslimiting/avoidi ng salt,exercises ____ times/week, andexercises for ____ minutes/day. For medications, patient reportstaking medications as directed,no side effects from medication, andchecks blood pressure at home, range: (120s systolic, 60s-70s diastolic).ROS as noted in the HPI Ruth Mauricio PA-C [address] [facility] [address], [place], [address], [facility] 12/26/2023 16:21:31 03/11/2024 text/html ROS as noted in the HPI 53 year old male presents for suture removal. He went to [facility] ED 02/26 for a 9 cm laceration on right anterior lower leg. He hit his leg on the corner of the car door. He has been cleaning the area once a day and keeping it covered with a bandage. Reports no pain, bleeding /discharge. PT. was update on Tdap in the hospital. Kamala fair, [facility] ([place], [place]) 03/21/2024 16:46:43 05/30/2024 text/html Generic HPI TemplateReported by [id number] male here for annual PE. colonoscopy done in 2021, normal, rec repeat in 10yrs.vaccines UTD, Pt already received flu and COVID booster in pharmacy.He sees dentist every 6 months.BP stable, he checks BP at work daily, report good readings. Tolerating LSN well, reports no side effects.Hyperlipidemia . Following low fat/carb diet.Extrinsic asthma, on Xolair infusions and allergy shots per allergy.BPH. Not seeing urology. Denies urinary sx. ADD. No meds. Stable.BMI is 29.8. Pt. reports exercising. Had cortisone injection for his spinal stenosis recently and is also on steroid taper for asthma.ROS as noted in the HPI Ruth Mauricio PA-C [address] [facility] [address], [place], [address], [facility] 05/30/2024 14:40:25 11/05/2024 text/html Hypertension F/UReported by PatientHPIFor associated symptoms, patient reportsno dizziness,no lightheadedness,no chest pain,no shortness of breath,no palpitations,no edema, andno calf pain with exertion. For lifestyle, patient reportslimiting/avoidi ng salt,exercises 3 times/week, andexercises for 30 minutes/day(rotator cuff surgery - has been unable to exercise for the last 6 weeks). For medications, patient reportstaking medications as directed,no side effects from medication, andchecks blood pressure at home, range: (120s systolic, 60s-64s diastolic)(hasn't checked it much since rotator cuff surgery).blood pressure is stable in office.ROS as noted in the HPI 54 y/o M presents to the office for BP check. He has been unable to exercise regularly due to rotator cuff surgery for the last couple of months. He is getting back on his exercise routine, and will start monitoring his BP more often once his rotator cuff surgery gets better. He eats a healthy diet and avoids high salt foods. He is tolerating well the medications and no side effects from it. He is working with an kaiawhina kura ka[place]apa maori to maintain his asthma under control which gets triggered by cold and URI. Ruth Mauricio PA-C [address] [facility] [address], [place], [address], [facility] 11/05/2024 16:05:33
--- OUTSIDE RECORDS SUMMARY | 2025-05-27 17:42 | XMS_ITS ---
Author Name [facility] Organization Unknown Care Team Organization Name Specialty Phone Email Start Date End Da te Office of the Leasing Representative ([facility]) 05/16/2024
== END 2025-05-27 16:04 | disposition home or self-care (01) ==
LOC: HO.HPHYS 15:14
PROVIDERS: PCP Physician Assistant Medical; Visit Provider Physician Assistant
DX: M54.16 Radiculopathy, lumbar region (principal); M47.816 Spondylosis without myelopathy or radiculopathy, lumbar region
CPT/HCPCS: 99213